=== PATIENT | male | born 1965 | race Caucasian/White ===

== ENCOUNTER → 2018-11-30 10:08 | Outpatient (CLI) | payer OTHER, SELFPAY ==
[2018-11-30 13:17] LABS: ALB/GLOB Ratio 1.1 RATIO (0.9-2.4); AST(SGOT) 24 U/L (15-37); Alanine Aminotransfer ALT/SGPT 32 U/L (16-61); Albumin, Serum 4.1 g/dL (3.2-5.0); Alkaline Phosphatase 50 U/L (45-117); Anion Gap 7 (5-15); BUN 17 mg/dL (7-18); BUN/Creat Ratio 13.9 RATIO (10-20); Calcium,Total 8.9 mg/dL (8.5-10.1); Chloride 104 mmol/L (98-107); Cholesterol 215 mg/dL (200); Creatinine, Serum 1.22 mg/dL (0.70-1.30); EST Glomerular Filtration Rate 66 mL/min (>60); Est Glom Filt Rate - Afr Amer 80 mL/min (>60); Globulin 3.6 g/dL (2.2-4.2); Glucose 94 mg/dL (74-106); High Density Lipoprotein 38 mg/dL; Potassium 4.5 mmol/L (3.5-5.1); Protein, Total 7.7 g/dL (6.4-8.2); Sodium Level 139 mmol/L (136-145); Triglycerides 394 mg/dL; Very Low Density Lipoprotein 79 mg/dL (5-40)
== END ==
PROVIDERS: Family Provider Nurse Practitioner; PCP Nurse Practitioner; Referring Provider Nurse Practitioner; Visit Provider Nurse Practitioner
DX: E78.1 Pure hyperglyceridemia (principal)
CPT/HCPCS: 36415; 80053; 80061

== ENCOUNTER → 2019-10-11 08:17 | Outpatient (CLI) | payer OTHER, SELFPAY ==
--- NOTE | 2019-10-11 08:22 | RAD_ITS ---
STUDY: X-RAY CHEST REASON FOR EXAM: Male, 54 years old. COUGH 5+ YEARS, STARTED GETTING WORSE 2 MO AGO, NO SMOKING HX TECHNIQUE: PA and lateral views of the chest. COMPARISON: None. FINDINGS: The lungs are clear and expanded. There is no demonstrated pleural abnormality. Normal size heart. Normal mediastinum and ginny. Normal visualized pulmonary arteries. Normal visualized aortic arch and descending thoracic aorta. Normal visualized thoracic spine. Normal visualized ribs, clavicles, and shoulders. There is no demonstrated abnormality of the visualized soft tissue structures of the upper abdomen. RAD/Chest PA and Lateral IMPRESSION: Normal x-ray examination of the chest. Electronically Signed: Fredo Davis MD at 15:51 EST Tel , Service support ,
== END ==
PROVIDERS: PCP Nurse Practitioner; Referring Provider Nurse Practitioner; Visit Provider Nurse Practitioner
DX: R05 Cough (principal)
CPT/HCPCS: 71046

== ENCOUNTER → 2019-10-19 06:54 | Outpatient (CLI) | payer OTHER, SELFPAY ==
--- NOTE | 2019-10-19 15:37 | PFTCOMP ---
COMPLETE PULMONARY FUNCTION TEST INTERPRETATION Brief HPI: Patient is a 54 year old male, currently under the care of Sarah Iselasonny, who presents to [facility] for complete pulmonary function tests secondary to diagnosis of chronic cough. Respiratory therapist reports good effort and reproducible results. Interpretation: Forced expiration spirometry shows a mild large airways obstructive ventilatory defect with an FEV1 of 114% predicted. There is a significant bronchodilator response in FEV1 by strict ATS criteria. Spirograms are of good quality and plateau slowly, indicating slowly emptying areas of the lungs. The respiratory flow volume loop shows decreased expiratory flow rates at all lung volumes consistent with airway obstruction. Lung volumes by body plethysmography show an elevated total lung capacity at 8.06 L, 126% predicted. All other lung volumes are enlarged symmetrically. Diffusion capacity by carbon monoxide is normal at 96% predicted. The airway resistance is normal. No previous pulmonary function tests were available for review. Impression: Fully reversible mild large airways obstructive ventilatory defect with hyperinflation, and a pattern consistent with asthma
== END ==
PROVIDERS: PCP Nurse Practitioner; Referring Provider Nurse Practitioner; Visit Provider Nurse Practitioner
DX: R05 Cough (principal)
CPT/HCPCS: 94060; 94726; 94729

== ENCOUNTER 2021-05-07 08:30 | Outpatient (RCR) | payer OTHER, SELFPAY ==
--- NOTE | 2021-04-08 10:45 | HP.PTEVAL_ITS ---
Patient's Visit Information BRIANA CUMMINGS is a 56 year old M referred to Physical Therapy by LIANET Elizondo with a diagnosis of L shoulder pain. Date of Evaluation: 04/08/21 Physical Therapist: Aramis Salomon, ANNITAT, OCS, CSCS - Visit Plan Frequency: 2-3x /Week Duration: 4-6 Weeks Plan: 2-3x/week for 4 weeks for. 1. modalities including TENS and ice and graade 1 mobs/PROM to help with pain and inflammation. 2. PROM-AROM L shoulder annd progress to strength when tolerated. 3. education on managemnt of pain. - Subjective L shoulder cannot lift or elevate, can IR a little bit , hurts to external rotate, hand and elbow are good. It was achy a llittle last week. All of a sudden wednesday he could not lift it. Was lifting concrete Wednesday but nothing unusual happened. Pain is to 2/10 when not moving. Sharp pains with sudden movements 9/10. Sleep is interupted adn needs muscle relaxer and pain meds to sleep. Employed as a perioperative tech and maintenance. Is off this week due to shoulder. Needs two hands to do job of mopping and emptying trash cans. Dresses sefl slowly, socks are a treat and does one handed, bath and shower are OK. He is R handed and this is his left shoulder that is bad. Hobbies: Working on things and cannot do that with Left right now. No neck problems or numbness in arm. - Pain L shoulder Pain Intensity (Out of 10): 2 Pain Intensity Range: 2, 9 - Objective Walks and trasnfers I but very protective of L arm movement holding it in elbow flexiona nd sap elevation and no movement to L arm, very stiff. Tender to palpation posterior infraspinatus L shoulder insertion. R shoulder AROM WFL adn strength at 4+/5, R elbow and wrist ROM normal and 4/5. L shoulder AROM 10 flexion and abduction 15 ext rotation painful and limited. IR slow adn painful. Resistance to shoulder all hurts and weak especially ext rotation. L elbow slow to flex but full aROM, 3+ strength. wrist and hand full. PROM L shoulder to about 30 limited by pain and difficulty relaxing. unable to do drop arm, pain with ext rotation lag test. unable to do HK or neer today. Very acute. Suspicious for RC pathology in infraspinatus. - Balance/Special Test Scores Quick DASH Score: 79.5450 - Goals Goal 1:: Pt sleep without waking at night. Goal Time Frame: 2-4 Weeks Goal 2:: Pt have AROM of L shoulder with no greater than 1/10 pain to 150 elevation to facilitate ADLs. Goal Time Frame: 2-4 Weeks Goal 3:: Quick Dash score 15 or better Goal Time Frame: 2-4 Weeks Goal 5:: Plan to return to work Goal Time Frame: 2-4 Weeks - Rehabilitation Potential Physical Therapy Diagnosis: L shoulder pain. Likely RC pathology. Rehabilitation Potential: Questionable - Anticipated Interventions Patient/Client Instruction: Educate patient on: Condition, Plan of Care For the Purpose of:: To decrease pain, To increase ROM, To improve muscle performance and motor function, To increase tolerance to activity/condition/position Therapeutic Exercise to Include: Strength training, Postural training, Flexibilty training, Passive ROM, Active ROM For the Purpose of:: To decrease pain, To decrease swelling/inflammation, To increase ROM, To improve muscle performance and motor function, To increase tolerance to activity/condition/position, To improve ability of physical actions for home/community/work/leisure Manual Therapy Techniques to Include: Mobilization, Passive ROM, Soft tissue mobilization For the Purpose of:: To decrease pain, To decrease swelling/inflammation, To increase ROM TENS: Yes Cryotherapy (ice pack, ice massage): Yes For the Purpose of:: To decrease pain, To decrease swelling/inflammation Thank you for the opportunity to evaluate your patient. For Medicare and Medicare HMO plans, please review the plan of care and approve it. It will need to be FAXED BACK to us at [phone] for Medicare purposes. For Medicare only, by signing this I certify the plan of care. Please let me know if there are questions or concerns regarding this plan of care. Physician Signature: Date:
--- NOTE | 2021-04-25 07:58 | HP.PTREVAL ---
Sarah Michelle, SENIOR JAVASCRIPT ENGINEER-C, It has been my pleasure to treat BRIANA CUMMINGS over the last 7 visits for L shoulder pain. Please see the progress note below for an update on the physical therapy plan of care! Subjective: Lost motion, gained some smll motion in outward direction. Still not able to lift arm to side more than 20 degrees. Hurts a little to move in front and is slow. Pain this week has been pretty good. Lateral shoulder hurts if he jerks quick 9/10. 2/10 to lift to the side. Sleeping is OK since the first visit. 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 Hard to lift [place]. Using zero turn at home, cutting down on quantity, hurts if he overdoes it with L arm. Objective/Function: Full aROM in flexion, ext rot and IR just hesitant toward end range, only about 20 degreees of active abduction, limited by inability more than pain but hurts to push into it. Posture much better adn not as protrective of L UE in standing/sitting as at initial eval. Strength is 3+ er, 4 IR, 4- flexion, 3- abd. Overall much better but still hard for abduction. Plan Plan: weekly to progress strength for 3-4 weeks as pt shows progress. Back to doctor if digresses. Balance/Gait/Functional tests - Balance/Special Test Scores Quick DASH Score: 79.5450 Goals Goal 1:: Pt sleep without waking at night. Goal Time Frame: 2-4 Weeks Goal Progress: Goal Met Goal 2:: Pt have AROM of L shoulder with no greater than 1/10 pain to 150 elevation to facilitate ADLs. Goal Time Frame: 2-4 Weeks Goal Progress: not abduction Goal 3:: Quick Dash score 15 or better Goal Time Frame: 2-4 Weeks Goal 4:: Abduction AROM to 140 degrees without pain. Goal Time Frame: 2-4 Weeks Goal Progress: NEW GOAL Goal 5:: Plan to return to work Goal Time Frame: 2-4 Weeks Anticipated Interventions Patient/Client Instruction: Educate patient on: Condition, Plan of Care For the Purpose of:: To decrease pain, To increase ROM, To improve muscle performance and motor function, To increase tolerance to activity/condition/position Therapeutic Exercise to Include: Strength training, Postural training, Flexibilty training, Passive ROM, Active ROM For the Purpose of:: To decrease pain, To decrease swelling/inflammation, To increase ROM, To improve muscle performance and motor function, To increase tolerance to activity/condition/position, To improve ability of physical actions for home/community/work/leisure Manual Therapy Techniques to Include: Mobilization, Passive ROM, Soft tissue mobilization For the Purpose of:: To decrease pain, To decrease swelling/inflammation, To increase ROM TENS: Yes Cryotherapy (ice pack, ice massage): Yes For the Purpose of:: To decrease pain, To decrease swelling/inflammation Please do not hesitate to contact me at [phone] by phone or if you have questions or concerns regarding this new plan of care! Sincerely, Aramis Salomon, DPT, OCS, CSCS
--- NOTE | 2021-05-07 08:56 | HP.PTREVAL ---
Sarah Michelle, MANAGER OPERATIONAL-C, It has been my pleasure to treat BRIANA CUMMINGS over the last 9 visits for L shoulder pain. Please see the progress note below for an update on the physical therapy plan of care! Subjective: New exercises went well. Pain level has been fine. Still frustrated that he cannot lif tarm up to side. wondering and anxious about next step! Wants to see ortho which has been offered by PCP office. Objective/Function: AROM L UE WNL except for abduction which is limited stillt o 20 degrees actively and compensates with sc ap. Unable to lift out to side and this is frustrating for patient. Strength in ext rotation is 4, IR 5/5, ext 5/5, flexion 4, abduction 3-. overall is much better with movement but still obvious RC signs and frustrated. Has to be really careful at wrok and with moevements or will get sudden asharp pain. Plan Plan: Pt to go to ortho and call after that visit for d/c or continued PT, hold chart until mid May. Note CC to [facility] at pateint request. Balance/Gait/Functional tests - Balance/Special Test Scores Quick DASH Score: 22.7250 Goals Goal 1:: Pt sleep without waking at night. Goal Time Frame: 2-4 Weeks Goal Progress: Goal Met Goal 2:: Pt have AROM of L shoulder with no greater than 1/10 pain to 150 elevation to facilitate ADLs. Goal Time Frame: 2-4 Weeks Goal Progress: not abduction, not progre Goal 3:: Quick Dash score 15 or better Goal Time Frame: 2-4 Weeks Goal Progress: notmet Goal 4:: Abduction AROM to 140 degrees without pain. Goal Time Frame: 2-4 Weeks Goal Progress: Not Progressing Goal 5:: Plan to return to work. Goal Time Frame: 2-4 Weeks Goal Progress: Goal Met Anticipated Interventions Patient/Client Instruction: Educate patient on: Condition, Plan of Care For the Purpose of:: To decrease pain, To increase ROM, To improve muscle performance and motor function, To increase tolerance to activity/condition/position Therapeutic Exercise to Include: Strength training, Postural training, Flexibilty training, Passive ROM, Active ROM For the Purpose of:: To decrease pain, To decrease swelling/inflammation, To increase ROM, To improve muscle performance and motor function, To increase tolerance to activity/condition/position, To improve ability of physical actions for home/community/work/leisure Manual Therapy Techniques to Include: Mobilization, Passive ROM, Soft tissue mobilization For the Purpose of:: To decrease pain, To decrease swelling/inflammation, To increase ROM TENS: Yes Cryotherapy (ice pack, ice massage): Yes For the Purpose of:: To decrease pain, To decrease swelling/inflammation Please do not hesitate to contact me at [phone] by phone or if you have questions or concerns regarding this new plan of care! Sincerely, Aramis Salomon, DPT, OCS, CSCS
--- NOTE | 2021-06-30 14:31 | HP.PT.NRP ---
BRIANA CUMMINGS was seen in my office for initial evaluation on 04/08/21. The following Plan of Care was established for this patient: Initial Frequency: 2-3x /Week Initial Duration: 4-6 Weeks Patient/Client Instruction: Educate patient on: Condition, Plan of Care For the Purpose of:: To decrease pain, To increase ROM, To improve muscle performance and motor function, To increase tolerance to activity/condition/position Therapeutic Exercise to Include: Strength training, Postural training, Flexibilty training, Passive ROM, Active ROM For the Purpose of:: To decrease pain, To decrease swelling/inflammation, To increase ROM, To improve muscle performance and motor function, To increase tolerance to activity/condition/position, To improve ability of physical actions for home/community/work/leisure Manual Therapy Techniques to Include: Mobilization, Passive ROM, Soft tissue mobilization For the Purpose of:: To decrease pain, To decrease swelling/inflammation, To increase ROM TENS: Yes Cryotherapy (ice pack, ice massage): Yes For the Purpose of:: To decrease pain, To decrease swelling/inflammation This patient was last seen in our office 05/07/21. Pertinent comments regarding their Physical therapy will appear below: Pt seen 9 visits of POC and was 90% better. Pt was back to ortho after last visit and was to callif he needed to return. At this point, it has been over 6 weeks and I will discontinue due to nonattendance. At this point I will be discontinuing this patient from physical therapy. I would be happy to see this patient again in the future if found appropriate by the physician. Thank you! Aramis Salomon, DPT, OCS, CSCS Balance/Gait/Functional tests - Balance/Special Test Scores Quick DASH Score: 22.7261
== END 2021-05-07 19:00 | disposition home or self-care (01) ==
LOC: PT 08:30
PROVIDERS: PCP Nurse Practitioner; Referring Provider Nurse Practitioner; Visit Provider Nurse Practitioner
DX: M25.512 Pain in left shoulder (principal)
CPT/HCPCS: 97014; 97110; 97140; 97161; 97164; 97530; G0283

== ENCOUNTER → 2025-01-29 | Outpatient (CLI) | payer OTHER, SELFPAY ==
--- NOTE | 2025-01-29 07:39 | RDU_ITS ---
Reason For Study Reason For Study: HTN Right Renal Artery Left Renal Artery Right renal artery ostium 128/40 RSV/EDV. Left renal artery ostium 96/39 PSV/EDV. Right renal artery proximal 140/43 Left renal artery proximal PSV/EDV PSV/EDV. 102/41 . Right renal artery mid 145/54 PSV/EDV. Left renal artery mid 103/47 PSV/EDV . Right renal artery distal 147/56 PSV/EDV. Left renal artery distal 102/30 PSV/EDV. Right Renal Parenchyma Left Renal Parenchyma Upper Pole Medula 48/20 PSV/EDV. Left upper pole medulla 35/17 PSV/EDV . Right upper pole medulla EDR 0.42 . Left upper pole medulla EDR 0.49 . Right upper pole medulla R.I. 0.59 . Left upper pole medulla R.I. 0.52 . Upper Ramin Cortx 21/9 PSV/EDV. UP Cortex 18/10 PSV/EDV. Right upper pole cortex EDR 0.43 . Left upper pole cortex EDR 0.56 . Right upper pole cortex R.I. 0.56 . Left upper pole cortex R.I. 0.46 . Right lower Pole medulla 30/14 PSV/EDV . Left lower Pole medulla 26/12 PSV/EDV . Right lower pole medulla EDR 0.47 . Left lower pole medulla EDR 0.46 . Right lower pole medulla R.I. 0.55 . Left lower pole medulla R.I. 0.54 . Lower Pole Cortex 23/11 PSV/EDV. Lower Pole Cortx 16/8 PSV/EDV. Right lower pole cortex EDR 0.48 . Left lower pole cortex EDR 0.5 . Right lower pole cortex R.I. 0.54 . Left lower pole cortex R.I. 0.52 . Right Renal Hilar Left Renal Hilar Right Hilar avg 42/24 PSV/EDV. LT Hilar avg 55/27 PSV/EDV . Right hilar acceleration time 40 m/sec. Left hilar acceleration time 30 m/sec. Right Renal Dimensions Left Renal Dimensions Right kidney size 12.56 cm . Left kidney size 11.06 cm . Right cortical dimension 1.89 cm . Left cortical dimension 2.04 cm . Aorta Proximal abdominal aorta 1.73cm x 1.74 cm . Proximal abdominal aorta peak systolic velocity is 113 cm/sec . Distal abdominal aorta 1.43cm x 1.46 cm . Distal abdominal aorta peak systolic velocity is 93 cm/sec . VL/Renal Artery Duplex Ultrasound Interpretation Summary Right renal artery patent with normal velocities and no evidence of stenosis. Left renal artery patent with normal velocities and no evidence of stenosis. Right renal vein patent. Left renal vein patent. Right kidney normal in size. Left kidney normal in size. Ordering Physician: Sirena Salomon Referring Physician: Sirena Salomon Performed By: Carie Montenegro, KRISTYN, RVT
== END | disposition home or self-care (01) ==
PROVIDERS: PCP Nurse Practitioner Family; Referring Provider Nurse Practitioner Family; Visit Provider Nurse Practitioner Family
DX: I10 Essential (primary) hypertension (principal)
CPT/HCPCS: 93975

== ENCOUNTER → 2025-02-21 | Outpatient (CLI) | payer OTHER, SELFPAY ==
--- NOTE | 2025-02-21 14:57 | ECHOD_ITS ---
Reason For Study Reason For Study: HYPERTENSION Procedure This was a 2D Doppler, Color Flow transthoracic echocardiogram. Exam performed in department. Left Ventricle Normal LV size. The left ventricular ejection fraction is 65 %. Stage 1 diastolic dysfunction. No regional wall motion abnormalities noted. Right Ventricle Normal RV size. Normal systolic function. Atria Normal left atrium. Normal right atrium. Mitral Valve Normal mitral valve. Tricuspid Valve Normal tricuspid valve. Mild (1+) tricuspid valve insufficiency. Pulmonary artery systolic pressure is 30 mmHg. Aortic Valve Trisinus/trileaflet aortic valve. Pulmonic Valve Normal pulmonic valve. Great Vessels Normal aortic root. Pericardium/Pleural No pericardial effusion. MMode/2D Measurements & Calculations LVIDd: 4.1 cm IVSd: 1.0 cm Ao root diam: 3.3 cm LVIDs: 2.7 cm LVPWd: 1.1 cm RVDd: 2.5 cm FS: 34.6 % LAV(MOD-bp): 36.6 ml LVAd ap4: 22.4 cm2 LVAd ap2: 16.4 cm2 LAV(MOD-bp) Indexed: 18.6 ml/m2 LVLd ap4: 7.4 cm LVLd ap2: 6.7 cm LAV(MOD-sp2): 35.1 ml EDV(MOD-sp4): 58.2 ml EDV(MOD-sp2): 34.0 ml LAV(MOD-sp4): 35.7 ml EDV(sp4-el): 57.8 ml EDV(sp2-el): 33.9 ml LVAs ap4: 9.8 cm2 LVAs ap2: 8.5 cm2 LVLs ap4: 5.5 cm LVLs ap2: 5.6 cm ESV(MOD-sp4): 15.9 ml ESV(MOD-sp2): 11.7 ml ESV(sp4-el): 14.8 ml ESV(sp2-el): 11.1 ml EF(MOD-sp4): 72.6 % EF(MOD-sp2): 65.6 % EF(sp4-el): 74.4 % SV(MOD-sp4): 42.2 ml SV(MOD-sp2): 22.3 ml SV(sp4-el): 43.0 ml SI(MOD-sp4): 21.5 ml/m2 SI(MOD-sp2): 11.4 ml/m2 LA A4 area: 13.8 cm2 LA dimension(2D): 3.6 cm RA A4 area: 14.5 cm2 TAPSE: 2.2 cm Time Measurements MV dec time: 0.17 sec Doppler Measurements & Calculations MV E max alonso: 71.9 cm/sec Lat Peak E' Alonso: 9.1 cm/sec Med Peak E' Alonso: 10.4 cm/sec MV A max alonso: 119.1 cm/sec E/E' lat: 7.9 E/E' med: 6.9 MV E/A: 0.60 MV V2 max: 127.6 cm/sec MV P1/2t max alonso: 83.0 cm/sec Ao V2 max: 156.9 cm/sec MV max P.5 mmHg MV P1/2t: 34.6 msec Ao max P.9 mmHg MV V2 mean: 65.2 cm/sec Ao V2 mean: 114.1 cm/sec MV mean P.0 mmHg MV dec slope: 703.4 cm/sec2 Ao mean P.7 mmHg MV V2 VTI: 18.1 cm MVA(P1/2t): 6.4 cm2 Ao V2 VTI: 25.7 cm AV (velocity ratio): 0.84 LV V1 max: 123.4 cm/sec PA V2 max: 125.7 cm/sec TR max alonso: 255.4 cm/sec LV V1 max P.1 mmHg TR max P.1 mmHg LV V1 mean P.9 mmHg LV V1 mean: 78.3 cm/sec LV V1 VTI: 21.5 cm ECHO/Echo Complete Interpretation Summary Normal LV size. The left ventricular ejection fraction is 65 %. Stage 1 diastolic dysfunction. Pulmonary artery systolic pressure is 30 mmHg. Ordering Physician: Sirena Salomon Referring Physician: Sirena Salomon Performed By: Amirah Pastrana RDCS, RVT
== END | disposition home or self-care (01) ==
LOC: CVS 14:55
PROVIDERS: PCP Nurse Practitioner Family; Referring Provider Nurse Practitioner Family; Visit Provider Nurse Practitioner Family
DX: I10 Essential (primary) hypertension (principal)
CPT/HCPCS: 93306